=== PATIENT | male | born 1995 ===

== ENCOUNTER 2018-05-13 02:22 | Emergency (ER) | payer MEDICAID, OTHER ==
[2018-05-13 02:44] VITALS: RESP 16
[2018-05-13] MEDS ORDERED: Morphine 30 mg SR Tab PO ONE (03:09)
--- NOTE | 2018-05-13 03:13 | ED PDOC ---
HPI: Abdomen Time Seen by Provider: 05/13/18 02:48 Chief Complaint (Nursing): Abdominal Pain History Per: Patient History/Exam Limitations: no limitations Onset/Duration Of Symptoms: Days Outside of [place] travel?: No Current Symptoms Are (Timing): Still Present Quality Of Discomfort: Dull, Aching Associated Symptoms: Nausea, Loss Of Appetite. denies: Fever, Chills, Vomiting, Diarrhea Exacerbating Factors: Deep Breaths Additional Complaint(s): 22 y/o M with hx of migraines and liiver Ca x 4 yrs with mets to lung and bone previously treated with resection x 2 as well as chemo and immunotherapy (no tx X 1 year) who recently moved back to [place] from [place]. Patient states that he has been having increased LUQ pain, generalized fatigue, increased SOB x 1 week. He states that he feels like he can't take a deep breath b/c the tumor is stopping him. He has had some nausea but none now. He overall feels unwell with pain and fatigue. He takes MS Contin 30mg PO BID and Dilaudid today. He took both of these and felt some relief but feels like he is getting pain more often now. He was receiving treatment in [place] and still is in contact with his oncologist there. He saw a surgeon at [facility] today for consideration of surgery once again. Denies C/P, palpitations, SOB, dizziness. He further endorses a KENNEDY that is getting worse. His usual HgB is between 7 and 9 and does not get transfused until it is below 7. Past Medical History Reviewed: Historical Data, Nursing Documentation, Vital Signs Vital Signs: Last Vital Signs Temp 98.6 F 05/13/18 02:36 Pulse 107 H 05/13/18 02:36 Resp 16 05/13/18 02:36 BP 122/75 05/13/18 02:36 Pulse Ox 100 05/13/18 02:36 - Medical History PMH: Anemia Denies: Chronic Kidney Disease Other PMH: liver Ca - Surgical History Other surgeries: hepatic resection X 2 - Family History Family History: States: Unknown Family Hx - Living Arrangements Living Arrangements: With Family - Home Medications Home Medications: Ambulatory Orders Medication Instructions Recorded HYDROmorphone [Dilaudid] 1 tab PO BID 05/13/18 Morphine Sulfate [Ms Contin] 30 mg PO BID 05/13/18 - Allergies Allergies/Adverse Reactions: Allergies Allergy/AdvReac Type Severity Reaction Status Date / Time No Known Allergies Allergy Verified 05/13/18 02:43 Review of Systems ROS Statement: Except As Marked, All Systems Reviewed And Found Negative Constitutional: Negative for: Fever, Chills, Sweats Cardiovascular: Negative for: Chest Pain Respiratory: Positive for: Shortness of Breath Gastrointestinal: Positive for: Nausea, Abdominal Pain. Negative for: Vomiting Musculoskeletal: Positive for: Back Pain Physical Exam - Reviewed Nursing Documentation Reviewed: Yes Vital Signs Reviewed: Yes - Physical Exam Appears: Positive for: Uncomfortable Head Exam: Positive for: ATRAUMATIC Skin: Positive for: Normal Color Eye Exam: Positive for: Normal appearance Neck: Positive for: Normal Cardiovascular/Chest: Positive for: Regular Rate, Rhythm Respiratory: Positive for: Normal Breath Sounds Gastrointestinal/Abdominal: Positive for: Soft, Tenderness (LUQ > RUQ tenderness, some guarding, no rebound), Guarding. Negative for: Distended, Rebound Neurologic/Psych: Positive for: Alert, Oriented - Laboratory Results Result Diagrams: 05/13/18 03:30 05/13/18 03:30 - ECG O2 Sat by Pulse Oximetry: 100 Medical Decision Making Medical Decision Making: CBC, CMP CXR PA and lateral Morphine 4mg IV for pain Reglan/Benadryl for KENNEDY 5:30am: Re-evaluated, KENNEDY is gone and pain has improved. Patient feels well enough to go home and call his oncologist re: his pain meds. Disposition - Clinical Impression Clinical Impression: Headache, Liver cancer, primary, with metastasis from liver to other site, Abdominal pain - Patient ED Disposition Is Patient to be Admitted: No Counseled Patient/Family Regarding: Studies Performed, Diagnosis, Need For Followup - Disposition Disposition: Routine/Home Disposition Time: 05:55 Condition: STABLE Additional Instructions: F/u with your oncologist re: your pain management today as you may need adjustment in your narcotic regimen. Instructions: Headache, Adult (DC) Forms: [employer] (American) Print Language: JAPANESE
[2018-05-13] MEDS ORDERED: Morphine 4 MG/ML VIAL ONE (03:34)
[2018-05-13 03:41] LABS: BASO % 0.8 % (0.0-2.0); EOS # 0.2 K/uL (0.0-0.7); EOS % 2.7 % (0.0-4.0); HEMOGLOBIN 7.5 g/dL (12.0-18.0); LYMPH # 1.1 K/uL (1.0-4.3); LYMPH % 17.9 % (20.0-40.0); MEAN CELL VOLUME 84.1 fl (80.0-94.0); MEAN CORPUSCULAR HEMOGLOBIN 27.3 pg (27.0-31.0); MEAN CORPUSCULAR HGB CONC 32.4 g/dL (33.0-37.0); MEAN PLATELET VOLUME 6.2 fl (7.2-11.7); MONO # 0.4 K/uL (0.0-0.8); MONO % 6.5 % (0.0-10.0); NEUT # 4.3 K/uL (1.8-7.0); NEUT % 72.1 % (50.0-75.0); RBC 2.76 Mil/uL (4.40-5.90); RED CELL DISTRIBUTION WIDTH 17.6 % (11.5-14.5); WHITE BLOOD COUNT 5.9 K/uL (4.8-10.8)
[2018-05-13 03:54] LABS: ALB/GLOB RATIO 0.7 (1.0-2.1); ALBUMIN 3.1 g/dL (3.5-5.0); ALT/SGPT 406 U/L (21-72); AST/SGOT 658 U/L (17-59); BLOOD UREA NITROGEN 20 mg/dl (9-20); CALCIUM 9.1 mg/dL (8.4-10.2); GFR NON-AFRICAN AMERICAN > 60
[2018-05-13 04:04] LABS: URINE BILIRUBIN NEGATIVE (NEGATIVE); URINE BLOOD NEGATIVE (NEGATIVE); URINE CLARITY SLIGHTY-CLOUDY (Clear); URINE COLOR YELLOW (YELLOW); URINE GLUCOSE (UA) NEG (Normal); URINE LEUKOCYTE ESTERASE NEG Leu/uL (Negative); URINE PROTEIN 30 mg/dL (NEGATIVE)
[2018-05-13] MEDS ORDERED: DiphenhydrAMINE 50 mg/ml Inj IVP STA (04:31)
[2018-05-13 06:11] VITALS: BP 122/70; PULSE 88; TEMP 97.9; O2SAT 98
--- NOTE | 2018-05-13 16:41 | RAD ---
Date of service: 05/13/2018 HISTORY: shortness of breath, cough COMPARISON: No prior. TECHNIQUE: Chest PA and lateral FINDINGS: LUNGS: No infiltrate bilaterally. Nodular foci are suggested at the left infrahilar and left perihilar region though these may be extra thoracic. Consider follow-up chest CT with contrast for added characterization. PLEURA: No significant pleural effusion identified. No pneumothorax apparent. CARDIOVASCULAR: No aortic atherosclerotic calcification present. Normal cardiac size. No pulmonary vascular congestion. OSSEOUS STRUCTURES: No significant abnormalities. VISUALIZED UPPER ABDOMEN: Surgical clips are seen at the right upper quadrant abdomen beyond the scope of a simple cholecystectomy. Additional clips are seen at the central abdomen as well as left upper quadrant. OTHER FINDINGS: None. IMPRESSION: No definite acute cardiopulmonary disease. Two nodular foci are identified in the left chest potentially reflecting masses in the lung. Follow-up chest CT with contrast is advised unless already evaluated. Incidental numerous surgical clips upper abdomen, right greater than left.
== END 2018-05-13 06:11 | disposition home or self-care (01) ==
LOC: MERGE 02:22 → H.ER 02:22
DX: R51 Headache (principal); C78.7 Secondary malignant neoplasm of liver and intrahepatic bile duct; R10.9 Unspecified abdominal pain
CPT/HCPCS: 71046; 80053; 81003; 85025; 96374; 96375; 99283; J1200; J2270; J2765

== ENCOUNTER 2018-05-14 16:06 | Emergency (ER) | payer SELFPAY ==
[2018-05-14 16:18] VITALS: RESP 18
[2018-05-14] MEDS ORDERED: Morphine 4 MG/ML VIAL IVP ONE ×2 (17:20→19:21)
[2018-05-14] MEDS ORDERED: Sodium Chloride 0.9% 1,000 ML IV SCH ×2 (17:30→19:00)
--- NOTE | 2018-05-14 17:37 | ED PDOC ---
HPI: General Adult Time Seen by Provider: 05/14/18 16:33 Chief Complaint (Nursing): Weakness/Neurological Deficit Chief Complaint (Provider): dehydration History Per: Patient History/Exam Limitations: no limitations Onset/Duration Of Symptoms: Days (1x) Current Symptoms Are (Timing): Still Present Severity: Moderate Additional Complaint(s): 22 year old male with a medical history of metastatic liver cancer (bone and lung mets) and anemia presents to the ED with complaints of dehydration and nausea that started today. Patient states he was diagnosed with liver cancer 4 years ago and was getting treatment in [place] (2x liver resections and immunotherapy) until 1x year ago when he stopped receiving treatment because it wasn't working. Patient states he moved to [place] 3x days ago to get another surgical opinion. Patient met with a surgeon in [facility], and will follow up with him. Patient was seen in the ED yesterday with complaints of body pain and nausea. Patient states he felt better after receiving medication. Today he states he feels dehydrated and his lips feel dry. Patient is tolerating PO fluids, but has had a decrease in appetite. Of note: Patient has a past medical history of anemia. His hemoglobin level is usually between 7-9, and get transfusions when it is under 7. His last transfusion was 3x months ago. PMD: Oncologist in [place]: Ravinder Camargo MD Past Medical History Reviewed: Historical Data, Nursing Documentation, Vital Signs Vital Signs: Last Vital Signs Temp 100 F H 05/14/18 16:16 Pulse 108 H 05/14/18 16:16 Resp 18 05/14/18 16:16 BP 106/63 05/14/18 16:16 Pulse Ox 98 05/14/18 16:16 - Medical History PMH: Anemia, Malignancy (liver cancer. bone and lung mets) Denies: Chronic Kidney Disease - Family History Family History: States: Unknown Family Hx - Home Medications Home Medications: Ambulatory Orders Medication Instructions Recorded HYDROmorphone [Dilaudid] 1 tab PO BID 05/13/18 Morphine Sulfate [Ms Contin] 30 mg PO BID 05/13/18 - Allergies Allergies/Adverse Reactions: Allergies Allergy/AdvReac Type Severity Reaction Status Date / Time No Known Allergies Allergy Verified 05/13/18 02:43 Review of Systems ROS Statement: Except As Marked, All Systems Reviewed And Found Negative Constitutional: Positive for: Other (dehydrated. ) ENT: Positive for: Other (dry lips.) Physical Exam - Reviewed Nursing Documentation Reviewed: Yes Vital Signs Reviewed: Yes - Physical Exam Appears: Positive for: Non-toxic, No Acute Distress Head Exam: Positive for: ATRAUMATIC, NORMOCEPHALIC Skin: Positive for: Normal Color, Warm, Dry Cardiovascular/Chest: Positive for: Tachycardia (regular rhythm) Respiratory: Positive for: Normal Breath Sounds Gastrointestinal/Abdominal: Positive for: Soft, Organomegaly (hepatomegaly). Negative for: Tenderness Extremity: Positive for: Normal ROM Neurologic/Psych: Positive for: Alert, Oriented (3x) - Laboratory Results Result Diagrams: 05/14/18 17:35 05/14/18 17:35 - ECG O2 Sat by Pulse Oximetry: 98 (RA) Pulse Ox Interpretation: Normal Medical Decision Making Medical Decision Makin:33 Initial impression: 22 year old male with complaints of dehydration. Initial plan: * CMP * CBC * morphine 4 mg IVP * IV NS 1,000 ml IV 1,000 mls/hr * zofran inj 4 mg IVP * blood culture * reevaluation On reeval-pt. reports feeling much better after IVF. Pt. reports "bone pain" returned and is requesting iv morphine. IV Morphine given. 2nd L NS given. Pt. nontoxic, no distress. Labs as above, increased transaminases, d/w pt. He is due to have outpt. imaging CT for staging arranged through his [facility] surgeon. Hgb stable from yesterday. Repeat vitals hr 84, bp 119/75. Scribe Attestation: Documented byArianne Dougherty, acting as a scribe for Yaneli Lu PA-C. Provider Scribe Attestation: All medical record entries made by the Scribe were at my direction and personally dictated by me. I have reviewed the chart and agree that the record accurately reflects my personal performance of the history, physical exam, medical decision making, and the department course for this patient. I have also personally directed, reviewed, and agree with the discharge instructions and disposition. Disposition - Clinical Impression Clinical Impression: Total body pain, Liver cancer - Patient ED Disposition Is Patient to be Admitted: No Counseled Patient/Family Regarding: Studies Performed, Diagnosis, Need For Followup - Disposition Disposition: Routine/Home Disposition Time: 19:27 Condition: STABLE Instructions: Liver Cancer, Acute Pain, Adult Forms: [facility] [employer] (Bolivian)
[2018-05-14 17:54] LABS: BASO % 0.3 % (0.0-2.0); EOS # 0.1 K/uL (0.0-0.7); EOS % 0.7 % (0.0-4.0); HEMOGLOBIN 7.2 g/dL (12.0-18.0); LYMPH % 10.6 % (20.0-40.0); MEAN CELL VOLUME 82.7 fl (80.0-94.0); MEAN CORPUSCULAR HEMOGLOBIN 27.1 pg (27.0-31.0); MEAN CORPUSCULAR HGB CONC 32.7 g/dL (33.0-37.0); MEAN PLATELET VOLUME 6.1 fl (7.2-11.7); MONO % 10.6 % (0.0-10.0); NEUT # 7.3 K/uL (1.8-7.0); NEUT % 77.8 % (50.0-75.0); RBC 2.66 Mil/uL (4.40-5.90); RED CELL DISTRIBUTION WIDTH 17.2 % (11.5-14.5); WHITE BLOOD COUNT 9.4 K/uL (4.8-10.8)
[2018-05-14 18:11] LABS: ALB/GLOB RATIO 0.8 (1.0-2.1); ALBUMIN 3.1 g/dL (3.5-5.0); ALT/SGPT 576 U/L (21-72); BLOOD UREA NITROGEN 13 mg/dl (9-20); CALCIUM 9.5 mg/dL (8.4-10.2); GFR NON-AFRICAN AMERICAN > 60
[2018-05-14 18:20] LABS: AST/SGOT 1294 U/L (17-59)
[2018-05-14 20:09] VITALS: BP 114/71; PULSE 94; TEMP 98.2; O2SAT 99
== END 2018-05-14 20:12 | disposition home or self-care (01) ==
LOC: MERGE 16:06 → H.ER 16:06
DX: M79.18 Myalgia, other site (principal); C22.9 Malignant neoplasm of liver, not specified as primary or secondary; C78.00 Secondary malignant neoplasm of unspecified lung; C79.51 Secondary malignant neoplasm of bone; D64.9 Anemia, unspecified
CPT/HCPCS: 80053; 85025; 87040; 96361; 96374; 96375; 96376; 99283; J2270; J2405; J7030

== ENCOUNTER 2018-05-15 12:40 | Emergency (ER) | payer SELFPAY ==
[2018-05-15] MEDS ORDERED: Sodium Chloride 0.9% 1,000 ML IV STA (14:01)
[2018-05-15 14:31] LABS: BASO % 0.3 % (0.0-2.0); EOS # 0.1 K/uL (0.0-0.7); EOS % 0.8 % (0.0-4.0); HEMOGLOBIN 7.2 g/dL (12.0-18.0); LYMPH # 0.9 K/uL (1.0-4.3); LYMPH % 9.8 % (20.0-40.0); MEAN CELL VOLUME 84.4 fl (80.0-94.0); MEAN CORPUSCULAR HGB CONC 33.1 g/dL (33.0-37.0); MEAN PLATELET VOLUME 6.3 fl (7.2-11.7); MONO # 0.9 K/uL (0.0-0.8); MONO % 9.7 % (0.0-10.0); NEUT # 7.4 K/uL (1.8-7.0); NEUT % 79.4 % (50.0-75.0); PLATELET COUNT 600 K/uL (130-400); RBC 2.58 Mil/uL (4.40-5.90); RED CELL DISTRIBUTION WIDTH 17.2 % (11.5-14.5); WHITE BLOOD COUNT 9.3 K/uL (4.8-10.8)
--- NOTE | 2018-05-15 14:36 | ED PDOC ---
HPI: Abdomen Time Seen by Provider: 05/15/18 13:33 Chief Complaint (Nursing): Abdominal Pain Chief Complaint (Provider): Abdominal Pain History Per: Patient History/Exam Limitations: no limitations Current Symptoms Are (Timing): Still Present Context: Other (cancer) Location Of Pain/Discomfort: RUQ, LUQ Quality Of Discomfort: "Pain" Associated Symptoms: Nausea, Vomiting Additional Complaint(s): 22 year old male with history of liver cancer with mets presents to the ED for the third time in three days for chronic abdominal pain and chronic nausea and vomiting. Patient is being evaluated by a surgeon at [facility] for radical abdominal surgery to take place next week. He took Dilaudid and Zofran at home without relief. Patient reports no change to pain quality. PMD: Dr. Camargo Past Medical History Reviewed: Historical Data, Nursing Documentation, Vital Signs Vital Signs: Last Vital Signs Temp 98 F 05/15/18 12:52 Pulse 102 H 05/15/18 12:52 Resp 16 05/15/18 12:52 BP 108/69 05/15/18 12:52 Pulse Ox 98 05/15/18 12:52 - Medical History PMH: Anemia, Malignancy (liver cancer. bone and lung mets) Denies: Chronic Kidney Disease - Family History Family History: States: Unknown Family Hx - Home Medications Home Medications: Ambulatory Orders Medication Instructions Recorded HYDROmorphone [Dilaudid] 1 tab PO BID 05/13/18 Morphine Sulfate [Ms Contin] 30 mg PO BID 05/13/18 HYDROmorphone [Dilaudid 2 mg Tab] 2 mg PO TID PRN #10 tab 05/15/18 - Allergies Allergies/Adverse Reactions: Allergies Allergy/AdvReac Type Severity Reaction Status Date / Time No Known Allergies Allergy Verified 05/15/18 12:52 Review of Systems ROS Statement: Except As Marked, All Systems Reviewed And Found Negative Gastrointestinal: Positive for: Nausea, Vomiting, Abdominal Pain Physical Exam - Reviewed Nursing Documentation Reviewed: Yes Vital Signs Reviewed: Yes - Physical Exam Appears: Positive for: No Acute Distress Skin: Positive for: Pallor Eye Exam: Positive for: Normal appearance, EOMI, PERRL Cardiovascular/Chest: Positive for: Regular Rate, Rhythm. Negative for: Murmur Respiratory: Positive for: Normal Breath Sounds. Negative for: Respiratory Distress Gastrointestinal/Abdominal: Positive for: Tenderness (bilateral upper quadrant ) Extremity: Positive for: Normal ROM (upper and lower). Negative for: Deformity Neurologic/Psych: Positive for: Alert, Oriented (x3). Negative for: Motor/Sensory Deficits - Laboratory Results Result Diagrams: 05/15/18 14:26 05/15/18 14:26 - ECG O2 Sat by Pulse Oximetry: 98 (RA) Pulse Ox Interpretation: Normal Medical Decision Making Medical Decision Making: Time: 1401 Initial Impression: Acute on chronic pain and nausea Initial Plan: --ABO/RH type --Type and screen --CMP --Urine dip --CBC with differentials --PTT --PT --Morphine 2 mg IV --NS --Zofran 4 mg IV --UA 17:[address] Perez, recommends discharge home with pain medication, will call back with appt for [facility] on Tuesday. FP resident will call patient with appt information (05/22/18 @ 8:20 AM). Scribe Attestation: Documented by Fernanda Callahan, acting as a scribe for Josselin Beach MD Provider Scribe Attestation: All medical record entries made by the Scribe were at my direction and personally dictated by me. I have reviewed the chart and agree that the record accurately reflects my personal performance of the history, physical exam, medical decision making, and the department course for this patient. I have also personally directed, reviewed, and agree with the discharge instructions and disposition. Disposition - Clinical Impression Clinical Impression: Liver cancer, primary, with metastasis from liver to other site, Chronic abdominal pain, Vomiting in adult - Disposition Disposition: Routine/Home Disposition Time: 17:04 Condition: IMPROVED Additional Instructions: FOLLOW-UP WITH SURGEON @ [facility] FOR REEVALUATION. Prescriptions: HYDROmorphone [Dilaudid 2 mg Tab] 2 mg PO TID PRN #10 tab PRN Reason: Pain, Severe (8-10) Instructions: Liver Cancer, Chronic Pain (DC), Nausea and Vomiting, Adult Forms: [employer] Connect (Norwegian)
[2018-05-15 14:40] LABS: INR 1.4; PROTHROMBIN TIME 15.6 Seconds (9.8-13.1)
[2018-05-15 14:42] LABS: BLOOD UREA NITROGEN 13 mg/dl (9-20); CALCIUM 9.1 mg/dL (8.4-10.2); GFR NON-AFRICAN AMERICAN > 60
[2018-05-15 14:43] LABS: PARTIAL THROMBOPLASTIN TIME 29.3 Seconds (25.6-37.1)
[2018-05-15 14:55] LABS: EOSINOPHIL 1 % (0-7); LYMPHOCYTE 9 % (20-50); MONOCYTE 7 % (0-10); NEUTROPHIL 83 % (42-75); TOTAL CELLS COUNTED 100
[2018-05-15 14:56] LABS: ANISOCYTOSIS SLIGHT; PLATELET ESTIMATE INCREASED (NORMAL)
[2018-05-15 14:58] LABS: HYPOCHROMIC MODERATE; TARGET CELLS SLIGHT
[2018-05-15 15:08] LABS: ALB/GLOB RATIO 0.7 (1.0-2.1); ALBUMIN 3.3 g/dL (3.5-5.0); ALT/SGPT 534 U/L (21-72); AST/SGOT 979 U/L (17-59)
[2018-05-15] MEDS ORDERED: Morphine 4 MG/ML VIAL IV STA (15:30)
[2018-05-15 16:34] LABS: SQUAMOUS EPITHIAL < 1 /hpf (0-5); URINE BILIRUBIN NEGATIVE (NEGATIVE); URINE BLOOD NEGATIVE (NEGATIVE); URINE CLARITY CLEAR (Clear); URINE COLOR YELLOW (YELLOW); URINE GLUCOSE (UA) NEG (Normal); URINE LEUKOCYTE ESTERASE NEG Leu/uL (Negative); URINE PROTEIN 30 mg/dL (NEGATIVE)
[2018-05-16 00:14] VITALS: BP 142/74; PULSE 102; RESP 18; TEMP 98.8
[2018-05-17 14:32] VITALS: O2SAT 98
== END 2018-05-15 16:40 | disposition home or self-care (01) ==
LOC: H.ER 12:40
DX: C78.7 Secondary malignant neoplasm of liver and intrahepatic bile duct (principal); G89.29 Other chronic pain; R10.9 Unspecified abdominal pain
CPT/HCPCS: 80053; 81003; 85025; 85610; 85730; 96374; 96375; 96376; 99283; J2270; J2405; J7030